=== PATIENT | male | born 1995 | race African-American/Black ===

== ENCOUNTER 2022-10-07 00:25 | Emergency (ER) | payer MEDICAID ==
[~2022-10-07] VITALS: Ht 190.5 cm; Wt 117.9 kg
[2022-10-07 00:40] VITALS: BP 147/90
--- NOTE | 2022-10-07 00:43 | NUR ---
to lobby a/w bed ambulatory
--- NOTE | 2022-10-07 01:04 | NUR ---
Dr. Orozco examining patient.
[2022-10-07] MEDS ORDERED: HYDROcodone/APAP 5/325 MG 1 TAB TAB PO ONE (01:05)
[2022-10-07 01:39] VITALS: BP 147/90
[2022-10-07] MEDS ORDERED: CLIN300C2 PO (01:51)
[2022-10-07] MEDS ORDERED: NAPR-54 PO (01:51)
--- NOTE | 2022-10-07 01:56 | NUR ---
Patient discharged with v/s stable. Written and verbal after care instructions given and explained. New prescription for clindamycin and naproxen Patient verbalized understanding. Ambulatory with steady gait. All questions addressed prior to discharge. Advised to follow up with PMD.
== END 2022-10-07 01:56 | disposition home or self-care (01) ==
LOC: MED 00:25
DX: K08.89 Other specified disorders of teeth and supporting structures (principal); Z79.899 Other long term (current) drug therapy
CPT/HCPCS: 99283